=== PATIENT | female | born 1930 | race Hispanic/Latino ===

== ENCOUNTER 2018-05-20 11:17 | Day surgery (SDC) | payer MEDICARE ==
[~2018-05-20 11:17] MED LIST: AK-Dilate ONE; IOPIDINE ONE; IOPIDINE OU ONE; MYDRIACYL ONE
[2018-05-20] MEDS ORDERED: AK-Dilate OU ONE (11:55)
[2018-05-20] MEDS ORDERED: MYDRIACYL OU ONE (11:55)
[2018-05-20] MEDS ORDERED: IOPIDINE OU ONE ×2 (11:55→12:37)
[2018-05-20 13:27] VITALS: BP 148/76
== END 2018-05-20 12:42 | disposition home or self-care (01) ==
LOC: OR 11:17
PROVIDERS: ATTEND Ophthalmology
DX: E11.36 Type 2 diabetes mellitus with diabetic cataract (principal); H26.493 Other secondary cataract, bilateral; I10 Essential (primary) hypertension; E78.00 Pure hypercholesterolemia, unspecified; M19.90 Unspecified osteoarthritis, unspecified site; Z79.899 Other long term (current) drug therapy; Z88.5 Allergy status to narcotic agent; Z98.42 Cataract extraction status, left eye; Z98.41 Cataract extraction status, right eye; Z90.710 Acquired absence of both cervix and uterus; Z90.49 Acquired absence of other specified parts of digestive tract; Z98.890 Other specified postprocedural states
CPT/HCPCS: 82962